=== PATIENT | male | born 1985 | race Caucasian/White ===

== ENCOUNTER 2019-07-07 14:12 | Emergency (ER) | payer OTHER ==
[~2019-07-07] VITALS: Ht 177.8 cm; Wt 138.3 kg
[2019-07-07 14:16] VITALS: Ht 177.8 cm; Wt 138.3 kg
[2019-07-07 14:49] LABS: BASOPHIL % 0.2 % (0-2); PLATELET COUNT 231 x10^3mcL (130-400); RED CELL DISTRIBUTION WIDTH 13.4 % (11.5-14.5)
[2019-07-07 14:59] LABS: CALCIUM 7.7 mg/dL (8.5-10.1); CARBON DIOXIDE 25.9 mmol/L (21-32); CHLORIDE SERUM 101 mmol/L (98-107); CREATININE SERUM 0.9 mg/dL (0.7-1.3); GFR1 > 60 mL/min; GLUCOSE SERUM 130 mg/dL (74-106); SODIUM SERUM 134 mmol/L (136-145)
[2019-07-07 15:04] LABS: ALBUMIN 3.3 g/dL (3.4-5.0); ALKALINE PHOSPHATASE 76 U/L (46-116); ALT/SGPT 21 U/L (16-63); AST/SGOT 16 U/L (15-37); BILIRUBIN TOTAL 2.4 mg/dL (0.20-1.00); TOTAL PROTEIN, SERUM 7.1 g/dL (6.4-8.2)
[2019-07-07 15:04] LABS: microscopic required? NO
[2019-07-07 15:11] LABS: UA SPECIFIC GRAVITY 1.025 (1.005-1.035); urine erythrocyte NEGATIVE (NEGATIVE)
[2019-07-07 16:10] VITALS: BP 130/71
== END 2019-07-07 16:10 | disposition home or self-care (01) ==
LOC: ED 14:12
PROVIDERS: Emergency Medicine
DX: T78.40XA Allergy, unspecified, initial encounter (principal); X58.XXXA Exposure to other specified factors, initial encounter
CPT/HCPCS: J1200; J2930; J7030

== ENCOUNTER 2019-10-30 08:07 | Emergency (ER) | payer OTHER ==
[~2019-10-30] VITALS: Ht 177.8 cm; Wt 152.9 kg
[2019-10-30 08:20] VITALS: Ht 177.8 cm; Wt 152.9 kg
[2019-10-30 13:01] VITALS: BP 131/74
== END 2019-10-30 13:01 | disposition home or self-care (01) ==
LOC: ED 08:07
DX: J10.1 Influenza due to other identified influenza virus with other respiratory manifestations (principal)
CPT/HCPCS: 87804